=== PATIENT | female | born 1960 | race Caucasian/White ===

== ENCOUNTER 2019-12-08 23:32 | Emergency (ER) | payer OTHER ==
[~2019-12-08] VITALS: Ht 152.4 cm; Wt 83.5 kg
[2019-12-08] MEDS ORDERED: HBP (23:41)
[2019-12-09] MEDS ORDERED: PEPCID40 MG PO (06:39)
[2019-12-09] MEDS ORDERED: LEVSIN/SL0.125 MG SL (06:39)
== END 2019-12-09 06:48 | disposition home or self-care (01) ==
LOC: ER 23:32
DX: R10.11 Right upper quadrant pain (principal)

== ENCOUNTER 2020-01-19 06:00 | Day surgery (SDC) | payer OTHER ==
[~2020-01-19 06:00] MED LIST: HBP; LEVSIN/SL0.125 MG SL; PEPCID40 MG PO; ZESTRIL10 M1 PO
== END 2020-01-19 13:20 | disposition home or self-care (01) ==
LOC: CIR.AMB 06:00
PROVIDERS: ATTEND Surgery
DX: K80.10 Calculus of gallbladder with chronic cholecystitis without obstruction (principal)

== ENCOUNTER 2020-10-10 10:37 | Emergency (ER) | payer OTHER ==
[~2020-10-10] VITALS: Ht 154.9 cm; Wt 80.7 kg
[2020-10-10] MEDS ORDERED: ZESTRIL2.5 MG (11:20)
[2020-10-10] MEDS ORDERED: SULINDAC200 MG (11:20)
[2020-10-10] MEDS ORDERED: LIPITOR20 MG (11:20)
[2020-10-10] MEDS ORDERED: DUI500 PO (12:55)
== END 2020-10-10 13:00 | disposition home or self-care (01) ==
LOC: ER 10:37
DX: S61.022A Laceration with foreign body of left thumb without damage to nail, initial encounter (principal); W26.0XXA Contact with knife, initial encounter; Y93.89 Activity, other specified; Y92.89 Other specified places as the place of occurrence of the external cause; Y99.8 Other external cause status